=== PATIENT | female | born 1975 | race Caucasian/White ===

== ENCOUNTER 2019-10-04 10:17 | Emergency (ER) | payer OTHER, SELFPAY ==
--- NOTE | ~2019-10-04 | XR_ITS ---
EXAMINATION: XR chest 1V portable EXAM DATE: 10/04/2019 10:57 INDICATION: Mid chest pain. TECHNIQUE: Portable AP frontal chest x-ray was obtained. There is no prior study for comparison. FINDINGS: The lungs are clear. There are no pleural effusions. The cardiomediastinal silhouette is within normal limits. There is no pneumothorax suspected. The bones and soft tissues are unremarkab le. There are cholecystectomy clips. IMPRESSION: Normal chest x-ray exam. Reviewed, dictated and finalized at location A. OGICAL ECONOMIST IMPRESSION: Normal chest x-ray exam.
[2019-10-04 10:21] VITALS: BP 131/94; PULSE 80; RESP 23; TEMP 36.6; O2SAT 100
--- NOTE | 2019-10-04 10:34 | ECG_ITS ---
Measurements Intervals [place] Rate: 73 P: 71 PA: 176 QRS: 20 QRSD: 81 T: 66 QT: 360 QTc: 398 Interpretive Statements SINUS RHYTHM WITH SINUS ARRHYTHMIA BASELINE ARTIFACT- II, III, AVF, V5-V6 NORMAL ECG Electronically Signed On 10-04-2019 15:33:48 [employer]ENER by Leno Williamson D.O.
[2019-10-04 10:49] LABS: Basophils Percent Auto 0.5 % (0.2-1.2); Eosinophils Absolute Auto 0.3 K/mm3 (0-0.3); Eosinophils Percent Auto 3.7 % (0-4.4); Hemoglobin 15.2 g/dL (12.0-15.0); Immature Granulocyte Absolute 0.02 K/mm3 (0.00-0.031); Immature Granulocyte Percent A 0.3 % (0-0.5); Lymphocytes Percent Auto 33.2 % (18.3-44.2); Mean Corpuscular HGB Conc 32.3 g/dl (32-36); Mean Corpuscular Hemoglobin 28.5 pg (26-34); Mean Platelet Volume 11.7 fl (7.4-10.4); Monocytes Absolute Auto 0.5 K/mm3 (0.1-0.6); Monocytes Percent Auto 6.5 % (2.6-8.5); Neutrophils Absolute Auto 4.4 K/mm3 (1.3-6.7); Neutrophils Percent Auto 55.8 % (45.5-73.1); Platelet Count Result 252 k/mm3 (150-375); Red Blood Count 5.34 M/mm3 (4.2-5.4); Red Cell Distribution Width 12.3 % (11.5-14.5); White Blood Count 7.8 K/mm3 (4.5-10.0)
[2019-10-04] MEDS: ASPIRIN 81 MG CHEWABLE TABLET 324 MG PO (10:55)
[2019-10-04 11:00] LABS: Alanine Aminotransferase 21 U/L (4-35); Albumin Level 5.2 g/dL (3.5-5.1); Alkaline Phosphatase 72 U/L (38-126); Aspartate Amino Transferase 32 U/L (14-36); Bilirubin,Total 0.5 mg/dL (0.2-1.3); Blood Urea Nitrogen 12 mg/dL (7-17); Calcium 9.7 mg/dL (8.4-10.2); Carbon Dioxide 27 mmol/L (22-30); Chloride 98 mmol/L (98-107); Estimated CRCL calculation 75 ml/min; Estimated Glomerular Filt Rate > 60; Glucose 137 mg/dL (65-105); Potassium 3.9 mmol/L (3.4-5.0); Sodium 137 mmol/L (137-145)
[2019-10-04 11:11] LABS: Troponin I < 0.012 ng/mL (0.000-0.034)
[2019-10-04 11:21] LABS: Add Urine Microscopic? YES; Appearance Urine Cloudy (Clear); Bilirubin Urine Negative (Negative); Blood Urine 1+ (Negative); Color Urine Colorless (Yellow); Glucose Urine UA Negative (Negative); Ketones Urine Negative (Negative); Leukocyte Esterase Ur Negative LEU/UL (Negative); Mucus Urine Rare /lpf; Nitrate Urine Negative (Negative); Protein Urine Negative (Negative); Specific Grav Ur 1.005 (1.001-1.035); Squamous Epithelial Cell Urine Rare /hpf (Few); Urobilinogen Urine Negative mg/dL (<2.0); WBC Urine 0-3 /hpf
[2019-10-04] MEDS: KETOROLAC 15 MG/ML VIAL (*BKC) IV PUSH (11:25)
--- NOTE | 2019-10-04 14:12 | ED.CHESTPAIN ---
HPI - Chest Pain General Chief Complaint: Chest Pain Stated Complaint: CP Time Seen by Provider: 10/04/19 10:31 Source: patient Mode of arrival: ambulatory Limitations: no limitations History of Present Illness HPI narrative: Patient presents with chief complaint of right-sided chest pressure and lower abdominal pain that has been present for 2 to 3 days intermittently. Patient states she went to her primary care Dr. Rubi's office today and he instructed her to come to the emergency department. Patient denies radiation of the chest pain. Patient denies history of heart attack or stroke of her own or close family members. Patient states she has been under a large amount of stress recently and had issues with her anxiety. Patient states that she has been having panic attacks. Patient denies suicidal or homicidal ideation. Patient denies shortness of breath. Patient states that she smokes marijuana but denies other recreational drug use. Patient states her gallbladder has been removed. Related Data Home Medications Medication Instructions Recorded Confirmed estradiol 1 mg PO DAILY 10/04/19 Allergies Allergy/AdvReac Type Severity Reaction Status Date / Time No Known Allergies Allergy Verified 10/04/19 10:26 Review of Systems Review of Systems: Narrative: CONSTITUTIONAL: Denies fever, chills, or sweats. EYES: Denies visual changes, redness, or discharge. ENT: Denies rhinorrhea, congestion, sore throat, or otalgia. CARDIOVASCULAR: Reports chest pain, denies palpitations, or edema. RESPIRATORY: Denies cough or dyspnea. GASTROINTESTINAL: Reports lower abdominal pain, denies nausea, vomiting, or diarrhea. GENITOURINARY: Denies dysuria or hematuria. SKIN: Denies rash or itching. MUSCULOSKELETAL: Denies back pain, joint pain, or myalgia. NEUROLOGIC: Denies headache, numbness, dizziness, or weakness. PSYCHIATRIC: Denies anxiety or depression. PMFSH Social History Social History Smoking status: Current some day smoker Tobacco type: cigarettes Gender identity (if verbalized by the patient): Female Exam Narrative: Exam Narrative: GENERAL: Well-appearing, well-nourished, and in no acute distress. HEAD: Normocephalic, atraumatic. EYES: PERRLA and EOMI. ENT: Nares clear, no rhinorrhea or epistaxis. Mucous membranes moist. Oropharynx without tonsillar hypertrophy exudate or other lesions. Bilateral TMs pearly nieves nonbulging NECK: Supple. No adenopathy or masses. No carotid bruits or JVD CHEST: Clear to auscultation. No respiratory distress. No wheezes rales or rhonchi HEART: No tenderness to palpation. Regular rate and rhythm. No murmur heard. Normal peripheral pulses. ABDOMEN: Soft, nontender, nondistended, normal active bowel sounds. EXTREMITIES: Normal range of motion. No edema. SKIN: Warm, dry, no rash. NEURO: No focal deficits. Alert and oriented x3. PSYCH: Normal mood and affect. Course Vital Signs Vital signs: Vital Signs Temperature 98 F 10/04/19 10:21 Pulse Rate 80 10/04/19 10:21 Respiratory Rate 23 H 10/04/19 10:21 Blood Pressure 131/94 H 10/04/19 10:21 Pulse Oximetry 100 10/04/19 10:21 Temperature 98 F 10/04/19 10:21 Pulse Rate 58 L 10/04/19 14:26 Respiratory Rate 16 10/04/19 14:26 Blood Pressure 100/69 10/04/19 14:26 Pulse Oximetry 98 10/04/19 14:26 MDM - Chest Pain MDM Narrative Medical decision making narrative: Patient states that she is ready to be discharged home. Patient states that her pain has ceased. Patient has agreed to stay for result of 3-hour troponin. Patient will be discharged- her 3-hour troponin is normal. Instructed patient of the need to follow-up with her primary care for further evaluation of this intermittent chest pain and management of her anxiety. She states that in the office he stated that her work-up was negative he will refer her to a traveling inventory associate for additional work-up.
[2019-10-04 14:26] VITALS: BP 100/69; PULSE 58; RESP 16; O2SAT 98
[2019-10-04 14:32] LABS: Troponin I < 0.012 ng/mL (0.000-0.034)
== END 2019-10-04 14:54 | disposition home or self-care (01) ==
PROVIDERS: Physician Assistant; Emergency Provider Emergency Medicine; PCP Emergency Medicine
DX: F41.9 Anxiety disorder, unspecified (principal); R07.89 Other chest pain; F17.210 Nicotine dependence, cigarettes, uncomplicated
CPT/HCPCS: 36415; 71045; 80053; 81001; 84484; 85025; 93005; 96374; 99284; A9270; J1885

== ENCOUNTER 2019-10-12 09:22 | Outpatient (CLI) | payer OTHER, SELFPAY ==
--- NOTE | ~2019-10-12 | MM_ITS ---
EXAMINATION: MM screening aliyah BI w herminio HISTORY: Screening mammogram TECHNIQUE: Craniocaudal and mediolateral oblique 3-D tomosynthesis images were obtained and synthetic 2-D images were generated. CAD analysis was submitted and interpreted. COMPARISON: No prior mammogram is available for comparison at this institution. BREAST PARENCHYMAL COMPOSITION: The breasts are almost entirely fatty. FINDINGS: There is no evidence of suspicious mass, calcification, or architectural distortion to sugg est malignancy in either breast. There has been no suspicious interval change. IMPRESSION: 1. No mammographic evidence of malignancy. 2. Recommend routine screening mammography in one year. BI-RADS Category 1: Negative Reviewed, dictated and finalized at location A. GER CREATIVE
== END 2019-10-12 09:23 | disposition home or self-care (01) ==
LOC: ANHIMG 09:26
PROVIDERS: PCP Emergency Medicine; Visit Provider Emergency Medicine
DX: Z12.31 Encounter for screening mammogram for malignant neoplasm of breast (principal)
CPT/HCPCS: 77063; 77067

== ENCOUNTER 2019-12-26 12:57 | Emergency (ER) | payer OTHER, SELFPAY ==
--- NOTE | ~2019-12-26 | XR_ITS ---
EXAMINATION: XR chest 2V 12/26/2019 13:32 INDICATION: Abnormal EKG. Shortness of breath. PROCEDURE: 2 view chest COMPARISON: No prior studies for comparison. FINDINGS: The lungs are clear. The cardiomediastinal silhouette is within normal limits. There are no pleural effusions. There is no pneumothorax suspected. IMPRESSION: 1: NO ACUTE CARDIOPULMONARY DISEASE. Reviewed, dictated and finalized at location A.
[2019-12-26 13:03] VITALS: BP 115/77; PULSE 85; RESP 16; TEMP 37.6; O2SAT 100
--- NOTE | 2019-12-26 13:10 | ECG_ITS ---
Measurements Intervals [place] Rate: 78 P: 63 MS: 177 QRS: -11 QRSD: 84 T: 47 QT: 385 QTc: 441 Interpretive Statements SINUS RHYTHM NORMAL ECG Electronically Signed On 12-27-2019 16:02:31 CDT by Leno Williamson D.O.
[2019-12-26 13:25] LABS: Basophils Percent Auto 0.6 % (0.2-1.2); Eosinophils Absolute Auto 0.5 K/mm3 (0-0.3); Eosinophils Percent Auto 7.4 % (0-4.4); Hematocrit 39.1 % (37.0-47.0); Hemoglobin 12.6 g/dL (12.0-15.0); Immature Granulocyte Absolute 0.02 K/mm3 (0.00-0.031); Immature Granulocyte Percent A 0.3 % (0-0.5); Lymphocytes Absolute Auto 2.32 K/mm3 (0.9-3.2); Lymphocytes Percent Auto 32.2 % (18.3-44.2); Mean Corpuscular HGB Conc 32.2 g/dl (32-36); Mean Corpuscular Hemoglobin 27.8 pg (26-34); Mean Corpuscular Volume 86.3 fl (80-100); Mean Platelet Volume 11.3 fl (7.4-10.4); Monocytes Absolute Auto 0.4 K/mm3 (0.1-0.6); Monocytes Percent Auto 5.3 % (2.6-8.5); Neutrophils Absolute Auto 3.9 K/mm3 (1.3-6.7); Neutrophils Percent Auto 54.2 % (45.5-73.1); Platelet Count Result 225 k/mm3 (150-375); Red Blood Count 4.53 M/mm3 (4.2-5.4); Red Cell Distribution Width 12.6 % (11.5-14.5); White Blood Count 7.2 K/mm3 (4.5-10.0)
[2019-12-26 13:35] LABS: Blood Urea Nitrogen 12 mg/dL (7-17); Calcium 8.8 mg/dL (8.4-10.2); Carbon Dioxide 27 mmol/L (22-30); Chloride 105 mmol/L (98-107); Estimated CRCL calculation 83 ml/min; Estimated Glomerular Filt Rate > 60; Glucose 109 mg/dL (65-105); Potassium 3.7 mmol/L (3.4-5.0); Sodium 136 mmol/L (137-145)
[2019-12-26 13:37] LABS: Prothrombin Time 12.6 Seconds (11.1-14.7)
[2019-12-26 13:38] LABS: Partial Thromboplastin Time 29.8 SECONDS (22.3-36.8)
[2019-12-26 13:47] LABS: Troponin I < 0.012 ng/mL (0.000-0.034)
--- NOTE | 2019-12-26 15:02 | ED.ARRPALP ---
HPI - Arrhythmia/Palpitations General Chief Complaint: Arrhythmia/Palpitations Stated Complaint: abnormal ekg, sob Time Seen by Provider: 12/26/19 12:59 History of Present Illness HPI narrative: Patient is a 44-year-old female who was sent here by her primary care physician. Patient reports over the last month she has been intermittently waking up at night with chest pain and some shortness of breath. It will last for brief amount of time and then she will be normal when she wakes up. Does not occur during the day. Patient does not have history of anxiety. Is unsure if it is related to anxiety. When she was at her primary care doctors he did an EKG and thought she should be seen in the ER. She has no history of coronary disease. She does not use drugs. Denies fever/chills/sweats/nausea/vomiting/dizziness. Related Data Home Medications Medication Instructions Recorded Confirmed estradiol 1 mg PO DAILY 10/04/19 Allergies Allergy/AdvReac Type Severity Reaction Status Date / Time No Known Allergies Allergy Verified 10/04/19 10:26 Review of Systems Review of Systems: All systems reviewed & are unremarkable except as noted in HPI and below Constitutional: Constitutional: Denies chills, Denies fever(s) and Denies weakness ENT: Denies nasal congestion and Denies sore throat Cardiovascular: Cardiovascular: Reports chest pain and Denies radiating jaw, neck or arm pain Respiratory: Respiratory: Denies cough, Reports dyspnea and Denies wheezing Gastrointestinal: Gastrointestinal: Denies abdominal pain, Denies nausea and Denies vomiting PMFSH Social History Social History Smoking status: Current some day smoker Tobacco type: cigarettes Gender identity (if verbalized by the patient): Female Exam Narrative: Exam Narrative: GENERAL: Well-appearing, well-nourished, and in no acute distress. HEAD: Normocephalic, atraumatic. ENT: Mucous membranes moist. CHEST: Clear to auscultation. No respiratory distress. HEART: Regular rate and rhythm. Normal peripheral pulses. ABDOMEN: Soft, nontender, nondistended. EXTREMITIES: Normal range of motion. No edema. SKIN: Warm, dry, no rash. NEURO: Alert and oriented x3. PSYCH: Normal mood and affect. Course Course Emergency Course: Patient informed of results. Chest pain-free. Discharge home. May be having GERD or anxiety at night. Will start with famotidine. Vital Signs Vital signs: Vital Signs Temperature 99.6 F 12/26/19 13:03 Pulse Rate 85 12/26/19 13:03 Respiratory Rate 16 12/26/19 13:03 Blood Pressure 115/77 12/26/19 13:03 Pulse Oximetry 100 12/26/19 13:03 Temperature 99.6 F 12/26/19 13:03 Pulse Rate 85 12/26/19 13:03 Respiratory Rate 16 12/26/19 13:03 Blood Pressure 115/77 12/26/19 13:03 Pulse Oximetry 100 12/26/19 13:03 MDM - Arrhythmia/Palpitations Lab Data Result diagrams: 12/26/19 13:16 12/26/19 13:16 Labs: Lab Results 12/26/19 12/26/19 12/26/19 Range/Units 13:16 13:16 13:16 WBC 7.2 (4.5-10.0) K/mm3 RBC 4.53 (4.2-5.4) M/mm3 Hgb 12.6 (12.0-15.0) g/dL Hct 39.1 (37.0-47.0) % MCV 86.3 (80-100) fl MCH 27.8 (26-34) pg MCHC 32.2 (32-36) g/dl RDW 12.6 (11.5-14.5) % Plt Count 225 (150-375) k/mm3 MPV 11.3 H (7.4-10.4) fl Immature Gran % (Auto) 0.3 (0-0.5) % Neut % (Auto) 54.2 (45.5-73.1) % Lymph % (Auto) 32.2 (18.3-44.2) % [place] % (Auto) 5.3 (2.6-8.5) % Eos % (Auto) 7.4 H (0-4.4) % Baso % (Auto) 0.6 (0.2-1.2) % Lymph # (Auto) 2.32 (0.9-3.2) K/mm3 [place] # (Auto) 0.4 (0.1-0.6) K/mm3 Eos # (Auto) 0.5 H (0-0.3) K/mm3 Baso # (Auto) 0.0 (0.0-0.1) K/mm3 Abs Immat Gran (auto) 0.02 (0.00-0.031) K/mm3 Absolute Neuts (auto) 3.9 (1.3-6.7) K/mm3 Absolute Nucleated RBC 0.0 (0.0-0.012) K/mm3 Nucleated RBC % 0.0 (0.0-0.2) % P
[2019-12-26 15:05] VITALS: BP 102/64; PULSE 54; RESP 15; O2SAT 100
== END 2019-12-26 15:31 | disposition home or self-care (01) ==
PROVIDERS: Emergency Provider Emergency Medicine; PCP Emergency Medicine
DX: R07.89 Other chest pain (principal); F17.210 Nicotine dependence, cigarettes, uncomplicated
CPT/HCPCS: 36415; 71046; 80048; 84484; 85025; 85610; 85730; 93005; 99284

== ENCOUNTER 2020-04-09 08:40 | Emergency (ER) | payer OTHER, SELFPAY ==
[2020-04-09 08:52] VITALS: BP 121/76; PULSE 67; RESP 16; TEMP 36.5; O2SAT 99
--- NOTE | 2020-04-09 08:53 | ED.SKABFB ---
HPI - Skin/Abscess/Foreign Bdy General Chief complaint: Skin/Abscess/Foreign Body Stated complaint: RASH Time Seen by Provider: 04/09/20 08:53 Source: patient and RN notes reviewed Mode of arrival: ambulatory Limitations: no limitations History of Present Illness HPI narrative: This is a 44 years old female presented office for evaluation of possible poison shannan/sumac rash. She was working in her backyard, removing some bushes/weed 4 days ago. She noticed the redness and scratches immediately after she started working however the very next morning the lesions has become more irritated, burning, and itchy. She tried calamine lotion with no relief. TD is up-to-date. Related Data Home Medications Medication Instructions Recorded Confirmed estradiol 1 mg PO DAILY 10/04/19 paroxetine HCl mg PO 04/09/20 sertraline mg 04/09/20 Allergies Allergy/AdvReac Type Severity Reaction Status Date / Time No Known Allergies Allergy Verified 10/04/19 10:26 Review of Systems Review of Systems: Narrative: CONSTITUTIONAL: Denies fever, chills ENT: Denies tongue swelling, lip swelling or difficulty swallowing CARDIOVASCULAR: Denies chest pain, palpitation RESPIRATORY: Denies dyspnea, wheezing GASTROINTESTINAL: Denies abdominal pain, nausea, vomiting SKIN: Reports itchy rash on her upper and lower extremities. MUSCULOSKELETAL: Denies acute joints pain NEUROLOGIC: Denies lightheaded All other systems reviewed are negative, except as documented in HPI. [facility] Past Medical History Medical History Arthritis Chronic cholecystitis with calculus Surgical History Surgical History H/O bilateral oophorectomy H/O section H/O: hysterectomy Social History Social History Smoking status: Current some day smoker Tobacco type: cigarettes Gender identity (if verbalized by the patient): Female Comments At time of signature, I agree with nursing past medical, surgical, social and family history. There is no relevant family history pertinent to the presenting complaint. Exam Narrative: Exam Narrative: GENERAL: This is a well-nourished, well-developed patient, in no apparent distress. EYES: Sclera clear/white. Vision is grossly intact. EARS: External ears normal, auditory canals clear and without drainage, TMs normal without perforation. Hearing grossly intact. NOSE: External nose normal with no obvious nasal discharge, nares without redness, no rhinorrhea. THROAT: Mucous membranes moist, posterior pharynx clear. NECK: Neck supple, non-tender without lymphadenopathy, masses or thyromegaly. CARDIOVASCULAR: Regular rate and rhythm without murmurs, gallops, or rubs. RESPIRATORY: Clear to auscultation. Breath sounds equal bilaterally. No wheezes, rales, or rhonchi. GASTROINTESTINAL: Abdomen soft, non-tender, nondistended. Bowel sounds are active. No hepato-splenomegaly, or palpable masses. No guarding. SKIN: upper and lower extremities noted excoriate lesions with linear erythema streak. No seconday cellulitis/lymphadenitis. NEURO: awake, alert, and oriented to person, place and time. There were no obvious focal neurologic abnormalities. Steady gait EXTREMITIES: Normal range of motion. No edema. [place] Coma Scale Eye Opening: Spontaneous 4 [place] Coma Scale Motor: Obeys Commands 6 [place] Coma Scale Verbal: Oriented 5 MDM - Skin/Abscess/Foreign Bdy MDM Narrative Medical decision making narrative: Discharge instructions reviewed with patient, as well as provided in writing per nursing staff. The instructions also include specific and strict return/GO TO THE ER as well as f/u information. All questions have been answered, and the patient deny any further questions with discharge and discharge plan. Differential Diagnosis Differential diagnosis: Likely abscess of
== END 2020-04-09 09:11 | disposition home or self-care (01) ==
PROVIDERS: Emergency Provider Nurse Practitioner
DX: L24.7 Irritant contact dermatitis due to plants, except food (principal); M19.90 Unspecified osteoarthritis, unspecified site; F17.210 Nicotine dependence, cigarettes, uncomplicated
CPT/HCPCS: 99213; G0463

== ENCOUNTER 2020-12-12 08:39 | Outpatient (CLI) | payer OTHER, SELFPAY ==
--- NOTE | ~2020-12-12 | XR_ITS ---
EXAMINATION: XR knee RT min 4V DATE: 12/12/2020 08:59 INDICATION: Right knee pain TECHNIQUE: Four views of the right knee were obtained. COMPARISON: None FINDINGS: Alignment is normal. No fracture or osteochondral lesion. Joint spaces are normal with no e rosions. No joint effusion/synovitis. Soft tissues are unremarkable. IMPRESSION: 1. No acute osseous abnormality. Reviewed, dictated and finalized at location B.
--- NOTE | ~2020-12-12 | XR_ITS ---
EXAMINATION: XR wrist RT min 3V INDICATION: Right wrist pain TECHNIQUE: Four views of the right wrist are obtained. COMPARISON: None available FINDINGS: There is no fracture, dislocation, or subluxation. The bones, soft tissues, and joint space s are normal. IMPRESSION: 1. No acute osseous abnormality. Reviewed, dictated and finalized at location B.
[2020-12-12 09:24] LABS: Add Urine Microscopic? YES; Appearance Urine Clear (Clear); Bacteria Urine Trace /hpf; Bilirubin Urine Negative (Negative); Blood Urine Negative (Negative); Color Urine Yellow (Yellow); Glucose Urine UA Negative (Negative); Ketones Urine Negative (Negative); Leukocyte Esterase Ur Negative LEU/UL (NEGATIVE); Mucus Urine Rare /lpf; Nitrate Urine Negative (Negative); Protein Urine 1+ mg/dL (Negative); RBC Urine 0-2 /hpf (0-2); Rheumatoid Factor < 8.6 IU/ML (<12); Specific Grav Ur 1.016 (1.001-1.035); Squamous Epithelial Cell Urine Rare /hpf (Few); Urobilinogen Urine Negative mg/dL (<2.0); WBC Urine 0-3 /hpf (0-3)
[2020-12-12 10:07] LABS: Erythrocyte Sedimentation Rate 6 mm/hr (0-20)
== END 2020-12-12 08:40 | disposition home or self-care (01) ==
LOC: ANHIMG 08:43
PROVIDERS: PCP Emergency Medicine; Visit Provider Emergency Medicine
DX: M25.531 Pain in right wrist (principal)
CPT/HCPCS: 36415; 73110; 73564; 81001; 85652; 86038; 86430; 87086

== ENCOUNTER 2022-06-09 09:31 | Emergency (ER) | payer OTHER, SELFPAY ==
--- NOTE | ~2022-06-09 | XR_ITS ---
EXAMINATION: XR chest 1V portable DATE: 06/09/2022 11:04 INDICATION: Shortness of breath. TECHNIQUE: A single frontal view of the chest was obtained. COMPARISON: Chest 2 views 12/26/2019, CT abdomen and pelvis 07/13/2019 FINDINGS: The chest demonstrates clear lungs without pneumonia, pleural effusion, or pneumothorax. Th e heart size is normal. IMPRESSION: 1. No acute cardiopulmonary disease. Reviewed, dictated and finalized at location A.
[2022-06-09 09:44] VITALS: BP 117/88; PULSE 93; RESP 13; O2SAT 100
[2022-06-09 09:47] VITALS: BP 117/88; PULSE 106; RESP 16; TEMP 37.4; O2SAT 100
--- NOTE | 2022-06-09 09:53 | ED.URI ---
HPI - URI/Sore Throat General Chief Complaint: Upper Respiratory Infection Stated Complaint: dehydrated, no taste buds, throwing up Time Seen by Provider: 06/09/22 09:35 History of Present Illness HPI Narrative: Patient is a 47-year-old female presenting with body aches and cough. Patient states that for the last several days she has had diffuse body aches as well as mild shortness of breath. States that she had a cough several days ago. Patient states that she has had no appetite and has not eaten for several days. States that she also has not been drinking fluids and she is concerned that she is dehydrated. States that she also has decreased taste. Patient states that she is vaccinated for COVID-19. She denies headache, fevers, chest pain, lightheadedness, abdominal pain, vomiting, diarrhea, dysuria, leg swelling. Related Data Home Medications Medication Instructions Recorded Confirmed estradiol 1 mg tablet 1 mg PO DAILY 10/04/19 paroxetine HCl 20 mg tablet mg PO 04/09/20 sertraline 25 mg tablet mg 04/09/20 Allergies Allergy/AdvReac Type Severity Reaction Status Date / Time No Known Allergies Allergy Verified 10/04/19 10:26 Review of Systems Review of Systems: All systems reviewed & are unremarkable except as noted in HPI and below PMFSH Past Medical History Medical History (Updated 06/10/22 @ 00:00 by Adams Peter) Arthritis Chronic cholecystitis with calculus Surgical History Surgical History H/O bilateral oophorectomy H/O section H/O: hysterectomy Social History Social History Smoking status: Current some day smoker Tobacco type: cigarettes Gender identity (if verbalized by the patient): Female Exam Narrative: GENERAL: Well-appearing, well-nourished, and in no acute distress. HEAD: Normocephalic, atraumatic. EYES: PERRLA and EOMI. ENT: Nares clear, no rhinorrhea or epistaxis. NECK: Supple. CHEST: Clear to auscultation. No respiratory distress. HEART: Regular rate and rhythm. No murmur heard. Normal peripheral pulses. ABDOMEN: Soft, nontender, nondistended, normal active bowel sounds. EXTREMITIES: Normal range of motion. No edema. SKIN: Warm, dry, no rash. NEURO: No focal deficits. Alert and oriented x3. PSYCH: Normal mood and affect. Course Course Emergency Course: Patient is a 47-year-old female presenting with body aches and cough. Patient is mildly tachycardic, otherwise vitals are within normal limits. Exam remarkable for the above. Patient is a little dry on labs. Patient received a liter of fluids. Chest x-ray shows no acute abnormalities. EKG with normal sinus rhythm, normal axis and intervals, no acute ischemic changes. Patient is negative for COVID-19. On reevaluation, patient states that she is feeling better. She feels comfortable going home. Recommended appropriate supportive care and return precautions. Patient voiced understanding and is agreeable with plan. Discharged in stable condition. Vital Signs Vital signs: Vital Signs Pulse Rate 93 06/09/22 09:44 Respiratory Rate 13 06/09/22 09:44 Blood Pressure 117/88 06/09/22 09:44 Pulse Oximetry 100 06/09/22 09:44 Temperature 99.4 F 06/09/22 09:47 Pulse Rate 80 06/09/22 12:05 Respiratory Rate 16 06/09/22 12:05 Blood Pressure 108/70 06/09/22 12:05 Pulse Oximetry 99 06/09/22 12:05 Oxygen Delivery Room Air 06/09/22 09:50 MDM - URI/Sore Throat Lab Data Result diagrams: 06/09/22 10:25 06/09/22 10:25 Labs: Lab Results 06/09/22 06/09/22 06/09/22 Range/Units 10:25 10:25 10:25 WBC 8.2 (4.5-10.0) K/mm3 RBC 4.66 (4.2-5.4) M/mm3 Hgb 13.4 (12.0-15.0) g/dL Hct 41.2 (37.0-47.0) % MCV 88.4 (80-100) fl MCH 28.8 (26-34) pg MCHC 32.5 (32-36) g/dl RDW 12.8 (11.5-14.5) % Plt
[2022-06-09 10:01] VITALS: BP 102/77; PULSE 87; RESP 18; O2SAT 100
--- NOTE | 2022-06-09 10:13 | ECG_ITS ---
Measurements Intervals [place] Rate: 71 P: 61 MT: 168 QRS: 38 QRSD: 85 T: 70 QT: 362 QTc: 394 Interpretive Statements SINUS RHYTHM COMPARED TO ECG 12/26/2019 13:10:51 NO SIGNIFICANT CHANGES Electronically Signed On 06-10-2022 14:32:30 CDT by Vaughn Mcrae M.D.
[2022-06-09 10:22] VITALS: BP 110/83; PULSE 96; RESP 19; O2SAT 100
[2022-06-09 10:40] LABS: Basophils Percent Auto 0.4 % (0.2-1.2); Eosinophils Absolute Auto 0.1 K/mm3 (0-0.3); Eosinophils Percent Auto 0.9 % (0-4.4); Hematocrit 41.2 % (37.0-47.0); Hemoglobin 13.4 g/dL (12.0-15.0); Immature Granulocyte Absolute 0.02 K/mm3 (0.00-0.031); Immature Granulocyte Percent A 0.2 % (0-0.5); Mean Corpuscular HGB Conc 32.5 g/dl (32-36); Mean Corpuscular Hemoglobin 28.8 pg (26-34); Mean Corpuscular Volume 88.4 fl (80-100); Mean Platelet Volume 10.4 fl (7.4-10.4); Monocytes Absolute Auto 0.7 K/mm3 (0.1-0.6); Monocytes Percent Auto 8.7 % (2.6-8.5); Neutrophils Absolute Auto 5.1 K/mm3 (1.3-6.7); Neutrophils Percent Auto 61.8 % (45.5-73.1); Platelet Count Result 218 k/mm3 (150-375); Red Blood Count 4.66 M/mm3 (4.2-5.4); Red Cell Distribution Width 12.8 % (11.5-14.5); White Blood Count 8.2 K/mm3 (4.5-10.0)
[2022-06-09] MEDS: SODIUM CHLORIDE 0.9% IV 1,000 ML 999 ML IV CONT (10:41)
[2022-06-09 10:51] LABS: Add Urine Microscopic? YES; Alanine Aminotransferase 23 U/L (6-35); Albumin Level 4.3 g/dL (3.5-5.1); Alkaline Phosphatase 72 U/L (38-126); Anion Gap 8 mmol/L (8-16); Appearance Urine Clear (Clear); Aspartate Amino Transferase 32 U/L (14-36); Bilirubin Urine Negative (Negative); Bilirubin,Total 0.5 mg/dL (0.2-1.3); Blood Urea Nitrogen 18 mg/dL (7-17); Blood Urine 1+ (Negative); Carbon Dioxide 25 mmol/L (22-30); Chloride 101 mmol/L (98-107); Color Urine Yellow (Yellow); Estimated Glomerular Filt Rate 60; Glucose 69 mg/dL (65-110); Glucose Urine UA 1+ mg/dL (Negative); Ketones Urine Negative (Negative); Leukocyte Esterase Ur Negative LEU/UL (Negative); Mucus Urine Moderate /lpf; Nitrate Urine Negative (Negative); Protein Urine 1+ mg/dL (Negative); Sodium 134 mmol/L (137-145); Specific Grav Ur 1.027 (1.001-1.035); Squamous Epithelial Cell Urine Rare /hpf (Few); Urobilinogen Urine Negative mg/dL (<2.0); WBC Urine 0-3 /hpf
[2022-06-09 11:15] VITALS: BP 110/80; PULSE 74; RESP 22; O2SAT 100
[2022-06-09 11:18] LABS: SARS-CoV-2 RNA PCR Negative
[2022-06-09 11:22] LABS: Platelet Estimate Adequate (Adequate)
[2022-06-09 11:23] LABS: Anisocytosis 1+ (NORMAL); Schistocytes None Seen (NORMAL)
[2022-06-09 12:05] VITALS: BP 108/70; PULSE 80; RESP 16; O2SAT 99
== END 2022-06-09 12:05 | disposition home or self-care (01) ==
PROVIDERS: Emergency Provider Emergency Medicine; PCP Emergency Medicine
DX: J06.9 Acute upper respiratory infection, unspecified (principal); E86.0 Dehydration; Z20.822 Contact with and (suspected) exposure to COVID-19
CPT/HCPCS: 36415; 71045; 80053; 81001; 85025; 93005; 96360; 99283; C9803; J7030; U0003; U0005